=== PATIENT | male | born 1990 | race Two or more races ===

== ENCOUNTER 2022-11-09 21:16 | Emergency (ER) | payer SELFPAY ==
[~2022-11-09] VITALS: Ht 177.8 cm; Wt 81.0 kg
[2022-11-09 22:36] LABS: Basophils # (auto) 0.1 10 ^3/uL (0-0.2); Eosinophils # (auto) 0.1 10 ^3/uL (0-0.8); Hematocrit 44.1 % (41.0-53.0); Hemoglobin 15.1 g/dL (13.5-17.5); Lymphocytes # (auto) 2.3 10 ^3/uL (0.4-5.4); Lymphocytes % (auto) 38.3 % (10.0-50.0); Mean Corpuscular Hemoglobin 31.6 pg (28.0-32.0); Mean Corpuscular Hgb Conc. 34.2 g/dL (32.0-36.0); Mean Corpuscular Volume 92.2 fL (80.0-100.0); Monocytes # (auto) 0.5 10 ^3/uL (0-1.3); Monocytes % (auto) 8.7 % (0.0-12.0); Nucleated Red Blood Cells % 0.1 %; Red Blood Cells 4.78 10^6/uL (4.5-5.90); Red Cell Distribution Width 13.3 % (11.8-14.3); White Blood Cell 5.9 10^3/uL (4.4-10.8)
[2022-11-09 22:55] LABS: Albumin 4.1 g/dL (3.4-5.0); BUN/Creatinine Ratio 12.1 (10.0-20.0); Magnesium 2.2 mg/dL (1.6-2.6); Potassium 3.7 mmol/L (3.5-5.1)
[2022-11-09 22:58] LABS: Bilirubin, Total 1.8 mg/dL (0.2-1.0); Total Protein 7.5 g/dL (6.4-8.2)
[2022-11-10 06:37] VITALS: BP 122/87
== END 2022-11-10 07:24 | disposition home or self-care (01) ==
LOC: EDBD 21:16 → ER 21:26
DX: R20.2 Paresthesia of skin (principal); M54.10 Radiculopathy, site unspecified
CPT/HCPCS: 36415; 71045; 80053; 83735; 83880; 84484; 85025; 93005